=== PATIENT | male | born 1955 | race Caucasian/White ===

== ENCOUNTER → 2017-02-12 | Outpatient (CLI) | payer MEDICARE, MEDICAID | END | disposition home or self-care (01) | LOC: CARD 12:04 | PROVIDERS: ATTEND Registered Nurse | DX: G40.909 Epilepsy, unspecified, not intractable, without status epilepticus (principal) | CPT/HCPCS: 95819 ==

== ENCOUNTER 2017-10-21 10:40 | Emergency (ER) | payer MEDICARE, MEDICAID ==
[~2017-10-21] VITALS: Ht 165.1 cm; Wt 80.9 kg
[~2017-10-21 10:40] MED LIST: DIAZ10TA PO; ERGO500017 PO; IPRA4AER INH; LEVE250T28 PO; LEVE500T53 PO; OXYC20TA2 PO; OXYC80TA25 PO; POLY17PO5 PO
[2017-10-21 14:13] VITALS: BP 104/67
== END 2017-10-21 14:15 | disposition home or self-care (01) ==
LOC: ED 14:05
DX: R42 Dizziness and giddiness (principal); Z91.81 History of falling
CPT/HCPCS: 99283

== ENCOUNTER 2017-11-04 12:43 | Emergency (ER) | payer MEDICARE, MEDICAID ==
[~2017-11-04] VITALS: Ht 165.1 cm; Wt 85.1 kg
[2017-11-04 12:50] VITALS: BP 126/78
[2017-11-04] MEDS ORDERED: SODIUM CHLORIDE FLUSH 10ML SYR IVF ONE (13:30)
[2017-11-04 13:33] LABS: BASOPHILS # (AUTO) 0.02 x10^3/uL (0-0.1); BASOPHILS % (AUTO) 0 % (0-1); EOSINOPHILS # (AUTO) 0.22 x10^3/uL (0-0.4); EOSINOPHILS % (AUTO) 4 % (1-7); LYMPHOCYTES # (AUTO) 1.27 x10^3/uL (1-3.4); LYMPHOCYTES % (AUTO) 22 % (22-44); MD NO; MEAN CORPUSCULAR HEMOGLOBIN 32.3 pg (27.5-34.5); MEAN CORPUSCULAR HGB CONC 33.9 g/dL (33.2-36.2); MEAN CORPUSCULAR VOLUME 95.4 fL (81-97); MEAN PLATELET VOLUME 7.2 fL (7.4-10.4); MONOCYTES # (AUTO) 0.65 x10^3/uL (0.2-0.8); MONOCYTES % (AUTO) 11 % (2-9); NEUTROPHILS # (AUTO) 3.62 x10^3/uL (1.8-6.8); NEUTROPHILS % (AUTO) 63 % (42-75); PLATELET COUNT 228 x10^3/uL (130-400); RED BLOOD COUNT 4.55 x10^6/uL (4.38-5.82); RED CELL DISTRIBUTION WIDTH 14.5 % (9.4-14.8)
[2017-11-04 13:44] LABS: ALANINE AMINOTRANSFERASE 29 U/L (12-78); ALBUMIN 3.4 g/dL (3.4-5.0); ANION GAP 4 mmol/L (5-15); CALCIUM 8.4 mg/dL (8.5-10.1); CHLORIDE 108 mmol/L (98-107); CREATININE 0.86 mg/dL (0.7-1.3)
[2017-11-04 13:47] LABS: ALKALINE PHOSPHATASE 97 U/L (45-117); BILIRUBIN,TOTAL 0.2 mg/dL (0.2-1.0); TOTAL PROTEIN 7.1 g/dL (6.4-8.2)
[2017-11-04 14:01] LABS: MICROSCOPIC NOT IND
[2017-11-04] MEDS ORDERED: METHOCARBAMOL 750 MG TABLET ONE (14:05)
[2017-11-04 14:06] LABS: CULTURE INDICATED? NO
[2017-11-04] MEDS ORDERED: METHOCARBAMOL 750 MG TABLET PO ONE (14:30)
== END 2017-11-04 14:39 | disposition home or self-care (01) ==
LOC: ED 14:33
DX: S46.012A Strain of muscle(s) and tendon(s) of the rotator cuff of left shoulder, initial encounter (principal); G40.419 Other generalized epilepsy and epileptic syndromes, intractable, without status epilepticus; X58.XXXA Exposure to other specified factors, initial encounter; Y93.89 Activity, other specified; Y99.8 Other external cause status; Y92.89 Other specified places as the place of occurrence of the external cause
CPT/HCPCS: 36415; 80053; 81003; 85025; 99285

== ENCOUNTER → 2017-11-24 | Outpatient (CLI) | payer MEDICARE, MEDICAID | END | disposition home or self-care (01) | LOC: CARD 12:31 | PROVIDERS: ATTEND Registered Nurse | DX: R56.9 Unspecified convulsions (principal) | CPT/HCPCS: 95819 ==

== ENCOUNTER → 2017-11-27 | Outpatient (CLI) | payer MEDICARE, MEDICAID ==
[~2017-11-27] MED LIST changes: +GADOBUTROL 10 MMOL/10 ML PFS ONE
== END ==
LOC: CFH 12:07
PROVIDERS: ATTEND Internal Medicine
DX: E55.9 Vitamin D deficiency, unspecified (principal); E78.5 Hyperlipidemia, unspecified; E03.9 Hypothyroidism, unspecified; R79.89 Other specified abnormal findings of blood chemistry; R53.83 Other fatigue; R71.8 Other abnormality of red blood cells; D72.829 Elevated white blood cell count, unspecified; G47.00 Insomnia, unspecified; R56.9 Unspecified convulsions; R51 Headache; M54.9 Dorsalgia, unspecified; F06.31 Mood disorder due to known physiological condition with depressive features; G40.409 Other generalized epilepsy and epileptic syndromes, not intractable, without status epilepticus; S43.005D Unspecified dislocation of left shoulder joint, subsequent encounter; F11.20 Opioid dependence, uncomplicated; W19.XXXD Unspecified fall, subsequent encounter
CPT/HCPCS: 70553; A9585